=== PATIENT | male | born 1990 | race Caucasian/White ===

== ENCOUNTER 2018-11-13 07:25 | Emergency (ER) | payer OTHER, BC, MEDICAID ==
[2018-11-13] MEDS: KETOROLAC 30 MG INJ IM (08:16)
[2018-11-13] MEDS: HYDROCODONE/APAP (5/325) TAB PO (09:00)
== END 2018-11-13 10:00 | disposition home or self-care (01) ==
LOC: FTE 07:25
DX: S62.336A Displaced fracture of neck of fifth metacarpal bone, right hand, initial encounter for closed fracture (principal); F17.210 Nicotine dependence, cigarettes, uncomplicated; W22.01XA Walked into wall, initial encounter; Y92.9 Unspecified place or not applicable
CPT/HCPCS: 29125; 73110-RT; 73130-RT; 96372; 99284-25

== ENCOUNTER 2018-12-09 19:15 | Emergency (ER) | payer OTHER ==
[2018-12-09] MEDS: HYDROCODONE/APAP (5/325) TAB PO (19:52)
== END 2018-12-09 20:40 | disposition home or self-care (01) ==
LOC: FTE 19:15
DX: S62.339 Displaced fracture of neck of unspecified metacarpal bone (principal); S39.92XA Unspecified injury of lower back, initial encounter; F17.210 Nicotine dependence, cigarettes, uncomplicated; Y04.0XXA Assault by unarmed brawl or fight, initial encounter
CPT/HCPCS: 99283; Z7502